=== PATIENT | male | born 1990 | race Caucasian/White ===

== ENCOUNTER 2020-02-06 14:10 | Emergency (ER) | payer MEDICAID ==
[~2020-02-06] VITALS: Ht 165.1 cm; Wt 74.8 kg
[2020-02-06 14:28] VITALS: Ht 165.1 cm; Wt 74.8 kg
[2020-02-06 15:10] LABS: BASOPHIL % 0.9 % (0-2); PLATELET COUNT 235 x10^3mcL (130-400)
[2020-02-06 15:11] LABS: RED CELL DISTRIBUTION WIDTH 15.1 % (11.5-14.5)
[2020-02-06 15:26] LABS: CARBON DIOXIDE 29.4 mmol/L (21-32); CHLORIDE SERUM 104 mmol/L (98-107); CREATININE SERUM 1.2 mg/dL (0.7-1.3); GFR1 > 60 mL/min; GLUCOSE SERUM 106 mg/dL (74-106); POTASSIUM SERUM 3.8 mmol/L (3.5-5.1); SODIUM SERUM 142 mmol/L (136-145)
[2020-02-06 15:32] LABS: ALBUMIN 3.4 g/dL (3.4-5.0); ALKALINE PHOSPHATASE 56 U/L (46-116); ALT/SGPT 46 U/L (16-63); AST/SGOT 28 U/L (15-37); BILIRUBIN TOTAL 0.2 mg/dL (0.20-1.00); LIPASE 122 IU/L (73-393); TOTAL PROTEIN, SERUM 6.7 g/dL (6.4-8.2)
[2020-02-06 17:14] VITALS: BP 127/71
[2020-02-06 17:18] LABS: microscopic required? YES; urine erythrocyte NEGATIVE (NEGATIVE)
== END 2020-02-06 17:14 | disposition home or self-care (01) ==
LOC: ED 14:10
PROVIDERS: Emergency Medicine
DX: K64.8 Other hemorrhoids (principal); R21 Rash and other nonspecific skin eruption; R10.30 Lower abdominal pain, unspecified; Z88.6 Allergy status to analgesic agent
CPT/HCPCS: J2270; J2405; J3490; Q9967

== ENCOUNTER 2020-02-10 07:29 | Emergency (ER) | payer MEDICAID ==
[~2020-02-10] VITALS: Ht 165.1 cm; Wt 78.5 kg
[2020-02-10 07:31] VITALS: Ht 165.1 cm; Wt 78.5 kg
[2020-02-10 09:14] LABS: BASOPHIL % 1.4 % (0-2); PLATELET COUNT 249 x10^3mcL (130-400)
[2020-02-10 09:15] LABS: CALCIUM 7.4 mg/dL (8.5-10.1); CARBON DIOXIDE 24.3 mmol/L (21-32); CHLORIDE SERUM 101 mmol/L (98-107); CREATININE SERUM 0.7 mg/dL (0.7-1.3); GFR1 > 60 mL/min; GLUCOSE SERUM 93 mg/dL (74-106); POTASSIUM SERUM 4.4 mmol/L (3.5-5.1); SODIUM SERUM 135 mmol/L (136-145)
[2020-02-10 09:19] LABS: ALKALINE PHOSPHATASE 53 U/L (46-116); ALT/SGPT 41 U/L (16-63); AST/SGOT 53 U/L (15-37); BILIRUBIN TOTAL 0.5 mg/dL (0.20-1.00); LIPASE 70 IU/L (73-393); TOTAL PROTEIN, SERUM 6.5 g/dL (6.4-8.2)
[2020-02-10 09:22] LABS: ALBUMIN 3.1 g/dL (3.4-5.0)
[2020-02-10 09:45] LABS: microscopic required? NO
[2020-02-10 10:52] VITALS: BP 95/56
[2020-02-10 10:52] LABS: urine erythrocyte NEGATIVE (NEGATIVE)
== END 2020-02-10 10:52 | disposition home or self-care (01) ==
LOC: ED 07:29
PROVIDERS: Emergency Medicine
DX: R10.84 Generalized abdominal pain (principal); R11.10 Vomiting, unspecified; R19.7 Diarrhea, unspecified; Z88.8 Allergy status to other drugs, medicaments and biological substances; Z87.19 Personal history of other diseases of the digestive system
CPT/HCPCS: J2405